=== PATIENT | female | born 1935 | race Caucasian/White ===

== ENCOUNTER → 2020-07-23 14:38 | Outpatient (CLI) | payer MEDICARE, SELFPAY ==
[2020-07-23 15:01] VITALS: BP 200/87; PULSE 93; RESP 16; O2SAT 96; BMI 27.4
[2020-07-23 15:13] VITALS: BP 184/69; PULSE 85
[2020-07-23] MEDS: Metoprolol Tartrate 5 MG/5 ML Vial IV ×3 (15:13→15:28)
[2020-07-23 15:20] VITALS: BP 190/65; PULSE 83
[2020-07-23 15:28] VITALS: BP 189/76; PULSE 83
[2020-07-23 15:50] VITALS: BP 177/73; PULSE 80; RESP 16; O2SAT 96
== END ==
PROVIDERS: PCP Family Medicine; Referring Provider Nurse Practitioner Family; Visit Provider Nurse Practitioner Family
DX: R69 Illness, unspecified (principal)
CPT/HCPCS: A4216